=== PATIENT | male | born 1950 | race Caucasian/White ===

== ENCOUNTER 2018-10-08 12:47 | Inpatient (IN) ==
--- NOTE | 2018-10-08 13:58 | Emergency Department Note ---
Disposition Clinical Impression: Chest pain Qualifiers: Chest pain type: unspecified Qualified Code(s): R07.9 - Chest pain, unspecified Hypertension Qualifiers: Hypertension type: unspecified Qualified Code(s): I10 - Essential (primary) hypertension Disposition: Admitted As Inpatient Condition: Undetermined Time of Disposition: 16:04 General Adult HPI - General Chief complaint: ED General Medical Stated complaint: Hypertension Time Seen by Provider: 10/08/18 12:58 Source: patient Mode of arrival: ambulatory Limitations: no limitations Nursing Notes Reviewed: Yes Vital Signs Reviewed: Yes - History of Present Illness HPI Narrative: 67-year-old male with history of hypertension arrives to the emergency department with complaint of not feeling well. He is describing intermittent episodes of chest and neck pain on evaluation when he is hypertensive. States that he wakes him up at night. The patient denies any complaint of anything at this time other than just feeling rundown. Patient is resting comfortably in the room. Vital signs demonstrate no acute process with the exception of his hypertension. He is currently on lisinopril. Patient was seen in another emergency department a few days ago where he was given 5 of Lopressor secondary to his hypertension. He was discharged home. He arrives to the emergency department with continued symptoms and does not know what else to do. No other acute complaints noted at this time. Pain Scale: 8 - Related Data Home Medications Medication Instructions Recorded Confirmed Lisinopril [Zestril] 20 mg PO BID 10/03/18 10/08/18 Amlodipine Besylate 2.5 mg PO BID 10/08/18 10/08/18 [place] Thyroid 15 mg PO DAILY 10/08/18 10/08/18 Aspirin 81 mg PO DAILY 10/08/18 10/08/18 CloNIDine 0.1 mg PO TID PRN 10/08/18 10/08/18 Allergies Allergy/AdvReac Type Severity Reaction Status Date / Time No Known Allergies Allergy Verified 10/03/18 07:29 All systems ED: reviewed and negative except as stated. Constitutional: Denies: fever, chills, weakness ENT ED: Denies: dysphagia Cardiovascular: Reports: chest pain Respiratory: Denies: dyspnea Gastrointestinal: Denies: abdominal pain Genitourinary: Denies: urgency, dysuria Musculoskeletal: Reports: neck pain. Denies: back pain Integumentary: Denies: rash Neurological: Denies: headache Past Medical History - Past Medical History Attestation: Yes The following information was validated with the patient. Source: patient, old records reviewed Medical history: Reports: hypertension Surgical history: Reports: non-contributory Psychiatric history: Reports: no psych history - Social History Smoking Status: Never smoker Smokeless Tobacco Status: No Alcohol use: Reports: none Drug use: Reports: none Physical Exam - General Limitations: no limitations General appearance: alert, in no apparent distress - Head Head exam: atraumatic, normocephalic, normal inspection - Eye Eye exam: Present: normal appearance, PERRL, EOMI - ENT ENT exam: normal exam, normal oropharynx, mucous membranes moist - Neck Neck exam: Present: normal inspection, full ROM, trachea midline - Chest Chest inspection: Present: normal inspection, symmetric chest wall rise - Respiratory Respiratory exam: Present: normal lung sounds bilaterally - Cardiovascular Cardiovascular exam: Present: regular rate, normal rhythm, normal heart sounds - Abdominal Exam Abdominal exam: Present: soft, Non-Tender. Absent: tenderness, distention, guarding, rebound, rigidity - Extremities Exam Extremities exam: Present: normal inspection, full ROM, normal capillary refill. Absent: tenderness, pedal edema - Neurological Exam Neurological exam: Present: alert, oriented X3 - Skin Skin exam: Present: warm, dry, intact, normal color Course Vital Signs Temperature 97.9 F 10/08/18 12:53 Pulse Rate 65 10/08/18 12:53 Respiratory Rate 18 10/08/18 12:53 Blood Pressure 187/98 10/08/18 12:53 O2 Sat by Pulse Oximetry 100 10/08/18 12:53 Temperature 97.9 F 10/08/18 13:14 Pulse Rate 61 10/08/18 14:54 Respiratory Rate 16 10/08/18 14:54 Blood Pressure 132/82 10/08/18 14:54 O2 Sat by Pulse Oximetry 97 10/08/18 14:54 Oxygen Delivery Oxygen Delivery Room Air Medical Decision Making - [facility] Narrative Medical decision making narrative: Patient's workup in the emergency department demonstrates no acute process. Given the episodic nature and complaint of chest discomfort as well as neck pain I am concerned about potential ACS and unstable angina. The patient will be admitted to the hospital at this time. No further questions or concerns noted. - Lab Data Lab results reviewed: Yes I reviewed the patient's lab results. Result diagrams: 10/09/18 05:30 10/09/18 05:30 Lab Results 10/08/18 10/08/18 10/08/18 Range/Units 13:45 13:45 13:45 WBC 7.4 (4.3-11.1) K/mcL RBC 5.77 H (4.19-5.50) M/mcL Hgb 17.2 H (12.9-16.9) g/dL Hct 52.4 H (37.5-50.1) % MCV 90.8 (83.0-100.0) fL MCH 29.8 (28.0-33.3) pg MCHC 32.8 (31.6-35.5) g/dL RDW 12.9 (11.5-14.5) % Plt Count 266 (140-400) K/mcL MPV 9.1 L (9.4-12.4) fL Immature Gran % 0.3 (0-4) % Seg Neutrophils % 74.8 % Lymphocytes % 13.6 % Monocytes % 7.0 % Eosinophils % 2.8 % Basophils % 1.5 % Neutrophils # 5.6 (1.6-8.9) K/mcL Lymphocytes # 1.0 (0.6-4.6) K/mcL Monocytes # 0.5 (0.0-1.3) K/mcL Eosinophils # 0.2 (0.0-0.6) K/mcL Basophils # 0.1 (0.0-0.2) K/mcL Sodium 139 (136-145) mEq/L Potassium 4.8 (3.5-5.1) mEq/L Chloride 104 (98-107) mEq/L Carbon Dioxide 26 (23-29) mEq/L BUN 15 (8-23) mg/dL Creatinine 0.97 (0.70-1.30) mg/dL Est GFR ( Amer) > 60 (> 60) Est GFR (Non-Af Amer) > 60 (> 60) BUN/Creatinine Ratio 15 (6-26) Glucose 102 (70-105) mg/dL Calculated Osmolality 289 (280-300) Calcium 9.9 (8.6-10.3) mg/dL Total Bilirubin 0.8 (0.3-1.0) mg/dL Direct Bilirubin 0.1 (0.0-0.2) mg/dL Indirect Bilirubin 0.7 (0.0-1.2) mg/dL AST 15 (13-39) Units/L ALT 14 (7-52) Units/L Alkaline Phosphatase 82 (34-104) Units/L Troponin I < 0.03 (< 0.04) ng/mL Serum Total Protein 7.5 (6.4-8.9) g/dL Albumin 4.5 (3.5-5.7) g/dL Globulin 3.0 (2.4-3.5) g/dL Albumin/Globulin Ratio 1.5 (1.1-2.2) TSH 2.672 (0.340-5.600) mcIU/mL - Radiology Data Radiology results reviewed: Yes I reviewed the patient's radiology results. Chest X-Ray 10/08/18 13:13 IMPRESSION: No active cardiopulmonary disease D/ / Adi Shankar MD / Adi Shankar MD Interpreting Provider: Adi Shankar MD - EKG Data EKG #1 EKG attestation: Yes I reviewed and interpreted this EKG. EKG results narrative: Heart rate 62 beats for minute. Normal sinus rhythm. No ST elevation or ST depression noted. No acute changes noted. Attestation Statement - Attestation Attestation: Resident Attestation: I examined this patient and my medical decision making was reviewed with the Resident Physician. I agree with the documented findings, disposition and treatment plan as described except to the extent set forth below. We independently had [id number] contact with the patient.EKG reviewed with resident physician. Agree with documentation. Patient presents for evaluation of chest pain radiating to the neck. Regular rhythm, clear to auscultation bilaterally, no acute distress, abdomen soft nontender to palpation. Patient will likely require admission secondary to symptoms and need for further evaluation.
[2018-10-08 14:02] LABS: Basophils # 0.1 K/mcL (0.0-0.2); Basophils % 1.5 %; Eosinophils # 0.2 K/mcL (0.0-0.6); Eosinophils % 2.8 %; Hematocrit 52.4 % (37.5-50.1); Hemoglobin 17.2 g/dL (12.9-16.9); Immature Granulocytes % 0.3 % (0-4); Lymphocytes % 13.6 %; Mean Corpuscular HGB Conc 32.8 g/dL (31.6-35.5); Mean Corpuscular Hemoglobin 29.8 pg (28.0-33.3); Mean Corpuscular Volume 90.8 fL (83.0-100.0); Mean Platelet Volume 9.1 fL (9.4-12.4); Monocytes # 0.5 K/mcL (0.0-1.3); Neutrophils # 5.6 K/mcL (1.6-8.9); Platelet Count 266 K/mcL (140-400); Red Blood Count 5.77 M/mcL (4.19-5.50); Red Cell Distribution Width 12.9 % (11.5-14.5); Segmented Neutrophils % 74.8 %; White Blood Count 7.4 K/mcL (4.3-11.1)
[2018-10-08 14:29] LABS: BUN/Creatinine Ratio 15 (6-26); Blood Urea Nitrogen 15 mg/dL (8-23); Calcium 9.9 mg/dL (8.6-10.3); Carbon Dioxide 26 mEq/L (23-29); Chloride 104 mEq/L (98-107); Glucose 102 mg/dL (70-105); Osmolality,Calculated 289 (280-300); Potassium 4.8 mEq/L (3.5-5.1); Sodium 139 mEq/L (136-145); Troponin I < 0.03 ng/mL (< 0.04); eGFR For African Americans > 60 (> 60); eGFR For Non-African Americans > 60 (> 60)
[2018-10-08 15:05] LABS: Albumin 4.5 g/dL (3.5-5.7); Albumin/Globulin Ratio 1.5 (1.1-2.2); Bilirubin,Direct 0.1 mg/dL (0.0-0.2); Bilirubin,Indirect 0.7 mg/dL (0.0-1.2); Bilirubin,Total 0.8 mg/dL (0.3-1.0); Thyroid Stimulating Hormone 2.672 mcIU/mL (0.340-5.600); Total Protein 7.5 g/dL (6.4-8.9)
[2018-10-08] MEDS ORDERED: Aspirin 325 MG TABLET PO ONE (15:58)
[2018-10-08] MEDS ORDERED: Nitroglycerin 0.4 MG TAB.SUBL SL PRN (15:58)
[2018-10-08] MEDS ORDERED: Naloxone 0.4 MG/ML INJ IVP PRN (17:13)
[2018-10-08] MEDS ORDERED: Acetaminophen 325 MG TABLET PO PRN (17:13)
[2018-10-08] MEDS ORDERED: *HR* HYDROcodone/Acet 5/325 mg TABLET PO PRN (17:13)
[2018-10-08] MEDS ORDERED: cloNIDine HCl 0.1 MG TABLET PO PRN (20:46)
--- NOTE | 2018-10-08 20:49 | Internal Med History&Physical ---
Date of Encounter: 10/08/18 Time of Encounter: 17:00 Internal Medicine - H&P: HPI Chief complaint: Hypertension Admitted From: Emergency Dept Plans for Post Hospital Care: Home History of present illness: Mr. 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 He continued to experience symptoms for the next few days. Describing intermittent feelings of being flushed general malaise pain going down the back of his neck fatigue and weight loss approximately 3 pounds this week and 10 pounds in one year and intentional. He denies any chest pain or shortness of breath he has had some nausea but no vomiting. States that the symptoms will wake him up at night. He presented to the ER with the above complaints in the ER lab work did reveal elevated hemoglobin and hematocrit rest of lab work was unremarkable EKG was sinus rhythm no ischemic changes noted chest x-ray no acute process. He did have elevated blood pressure and was given nitroglycerin which did decrease his blood pressure. He is been admitted for further workup and evaluation currently denies any chest pain or any symptoms his blood pressure is currently 160 systolic Past Med Surg Social Fam HX - Past Medical History Medical history: hypertension Psychiatric history: no psych history - Past Surgical History Surgical History: non-contributory - Social History Smoking Status: Never smoker Smokeless Tobacco Status: No Alcohol use: none Drug use: none - Family History Mother Hx Family Cardiac Disorders: Yes Father Hx Family Cardiac Disorders: Yes Internal Medicine - H&P: Meds Lisinopril [Zestril] 20 mg PO BID 10/03/18 [History] Amlodipine Besylate 2.5 mg PO BID 10/08/18 [History] Delong Thyroid 15 mg PO DAILY 10/08/18 [History] Aspirin 81 mg PO DAILY 10/08/18 [History] CloNIDine 0.1 mg PO TID PRN 10/08/18 [History] Allergy/AdvReac Type Severity Reaction Status Date / Time No Known Allergies Allergy Verified 10/03/18 07:29 All Systems PM: A 10-system review of systems was performed and is negative for pertinent findings except as documented above in the HPI. - Constitutional Constitutional: anorexia, excessive sweating, malaise, weight loss, no chills, no fever(s), no night sweats - EENT Eyes: no change in vision, no discharge, no pain, no photophobia Ears: no ear discharge, no ear pain, no tinnitus Nose, mouth and throat: no dysphagia, no nasal discharge, no neck pain, no sore throat - Cardiovascular Cardiovascular ROS IM: no chest pain, no diaphoresis, no dyspnea, no lightheadedness, no palpitations, no syncope - Respiratory Respiratory: no cough, no dyspnea, no wheezing, no excessive phlegm production - Gastrointestinal Gastrointestinal: no abdominal pain, no diarrhea, no hematemesis, no hematochezia, no melena, no nausea, no vomiting - Musculoskeletal Musculoskeletal ROS IM: neck pain, no numbness, no tingling - Integumentary Integumentary IM: no rash, no unusual bruising - Neurological Neurological ROS: no confusion, no convulsions, no focal weakness, no numbness, no tingling, no tremor(s) - Hematologic/Lymphatic Hematologic/Lymphatic: no easy bruising - Constitutional Vitals: Temp Pulse Resp BP Pulse Ox 98.2 F 69 15 165/83 95 10/08/18 19:18 10/08/18 19:18 10/08/18 19:18 10/08/18 19:18 10/08/18 19:18 Exam: Skin: Free of rash and discoloration. Eyes: Sclera is white. There is no discharge from eyes. ENMT: Oral/pharyngeal mucosa is normal in appearance. There is no discharge from nose or ears. Respiratory: Normal breath sounds with no crackles and wheezes bilaterally. CV: Heart is regular with no gallop or murmur. GI: Abdomen is flat and soft with no palpable mass or visceromegaly. : There is no tenderness in patient's flanks bilaterally. Neuro exam: He has good strength in upper and lower extremities. He has normal eye movements. Psychiatric: He has normal affect. His thought process is appropriate to the situation. Internal Med - H&P Results - Labs CBC & Chem 7: 10/08/18 13:45 10/08/18 13:45 Labs: Short CBC 10/08/18 Range/Units 13:45 WBC 7.4 (4.3-11.1) K/mcL Hgb 17.2 H (12.9-16.9) g/dL Hct 52.4 H (37.5-50.1) % Plt Count 266 (140-400) K/mcL Neutrophils # 5.6 (1.6-8.9) K/mcL BMP 10/08/18 13:45 Sodium 139 Potassium 4.8 Chloride 104 Carbon Dioxide 26 BUN 15 Creatinine 0.97 Glucose 102 Calcium 9.9 Cardiac Enzymes 10/08/18 10/08/18 Range/Units 13:45 17:23 Troponin I < 0.03 < 0.03 (< 0.04) ng/mL Liver Function 10/08/18 Range/Units 13:45 Total Bilirubin 0.8 (0.3-1.0) mg/dL Direct Bilirubin 0.1 (0.0-0.2) mg/dL AST 15 (13-39) Units/L ALT 14 (7-52) Units/L Alkaline Phosphatase 82 (34-104) Units/L Albumin 4.5 (3.5-5.7) g/dL - Impressions ITS Impressions Chest X-Ray 10/08/18 13:13 IMPRESSION: No active cardiopulmonary disease D/ / Adi Shankar MD / Adi Shankar MD Interpreting Provider: Adi Shankar MD - Assessment and Plan (1) Polycythemia Current Visit: Yes Status: Suspected Assessment and plan: Have slightly elevated hemoglobin and hematocrit-states that he has never had problems with hematocrit in the past Has been experiencing her mid neck pain with elevated blood pressure We will check a serum erythropoietin As well as a urinalysis for hematuria Consult hematology as needed Continue to monitor hemoglobin (2) Pheochromoblastoma Current Visit: Yes Status: Suspected Assessment and plan: Patient has been experiencing intermittent elevations of blood pressure with systolic at 200 at times. He has been experiencing symptoms of flushing general malaise fatigue pain in the back of his neck and weight loss 3 pounds weight loss in the last week CT is feeling anxious this is been going on for the past month but in the past week it has worsened with elevation of blood pressure-he has been awakened at night with the above symptoms he was seen at the ER and was given IV medication he also had elevated TSH and was initiated on Synthroid We will obtain a 24-hour urine for metanephrine CT of abdomen and pelvis check for a lesion Continue with home BP medications . 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 Continue with home medication as well as workup above (4) DVT prophylaxis Current Visit: Yes Status: Acute Assessment and plan: Lovenox subcutaneous (5) Hypothyroid Current Visit: Yes Status: Acute Assessment and plan: Continue with home medications Check TSH Qualifiers: Hypothyroidism type: unspecified Qualified Code(s): E03.9 - Hypothyroidism, unspecified - Time Spent With Patient Total time spent is greater than 50% in coordination of care (as documented) at patient's floor/unit and/or counseling patient:
[2018-10-08 21:13] LABS: Bilirubin,Urine Negative (Negative); Blood,Urine Negative (Negative); Clarity,Urine Clear (Clear); Color,Urine Yellow (Yellow); Glucose,Urine (UA) Normal (Normal); Ketones,Urine Negative (Negative); Leukocyte Esterase,Urine Trace (Negative); Nitrite,Urine Negative (Negative); Protein,Urine Negative (Neg-Trace); Specific Gravity,Urine 1.018 (1.010-1.025); Urobilinogen,Urine Normal (Normal)
[2018-10-08 21:15] LABS: Bacteria,Urine None Seen per hpf (None-Few); Hyaline Casts,Urine None Seen per lpf (None-Few); RBC,Urine 0-3 per hpf (0-3); Squamous Epithelial Cell,Urine Few per lpf (None-Few); WBC,Urine 0-3 per hpf (0-3)
[2018-10-08] MEDS ORDERED: Perflutren Lipid Microsphere 1.3 ML in 0.9 % Sodium Chloride 8.7 ML IVP ONE (22:30)
[2018-10-08] MEDS: amLODIPine 5 MG TABLET PO SCH (23:28)
[2018-10-09] MEDS ORDERED: *HR* LORazepam 2 MG/ML VIAL IVP ONE (00:45)
[2018-10-09 06:09] LABS: Basophils # 0.1 K/mcL (0.0-0.2); Basophils % 1.7 %; Eosinophils # 0.5 K/mcL (0.0-0.6); Eosinophils % 6.1 %; Hematocrit 49.9 % (37.5-50.1); Hemoglobin 15.9 g/dL (12.9-16.9); Immature Granulocytes % 0.4 % (0-4); Lymphocytes # 1.4 K/mcL (0.6-4.6); Lymphocytes % 17.3 %; Mean Corpuscular HGB Conc 31.9 g/dL (31.6-35.5); Mean Corpuscular Volume 90.9 fL (83.0-100.0); Mean Platelet Volume 9.2 fL (9.4-12.4); Monocytes # 0.6 K/mcL (0.0-1.3); Monocytes % 7.3 %; Neutrophils # 5.4 K/mcL (1.6-8.9); Platelet Count 235 K/mcL (140-400); Red Blood Count 5.49 M/mcL (4.19-5.50); Red Cell Distribution Width 12.7 % (11.5-14.5); Segmented Neutrophils % 67.2 %
[2018-10-09 06:32] LABS: BUN/Creatinine Ratio 17 (6-26); Blood Urea Nitrogen 16 mg/dL (8-23); Calcium 9.4 mg/dL (8.6-10.3); Carbon Dioxide 25 mEq/L (23-29); Chloride 106 mEq/L (98-107); Chol/HDL Ratio 4.5 (0-4.9); Cholesterol 161 mg/dL (< 200); Glucose 91 mg/dL (70-105); HDL Cholesterol 36 mg/dL (40-59); LDL Cholesterol,Calculated 114 mg/dL (0-99); Magnesium 2.1 mg/dL (1.6-2.6); Osmolality,Calculated 285 (280-300); Potassium 4.3 mEq/L (3.5-5.1); Sodium 137 mEq/L (136-145); Triglycerides 55 mg/dL (< 150); eGFR For African Americans > 60 (> 60); eGFR For Non-African Americans > 60 (> 60)
[2018-10-09] MEDS ORDERED: *HR* Enoxaparin 40 MG/0.4 ML SYRINGE SQ SCH (07:00)
[2018-10-09] MEDS: Thyroid (Amour) 30 MG TABLET PO SCH (07:52)
[2018-10-09] MEDS: Aspirin 81 MG TAB.CHEW PO SCH (07:52)
[2018-10-09] MEDS: amLODIPine 5 MG TABLET PO SCH ×2 (07:52→20:29)
[2018-10-09] MEDS ORDERED: Lisinopril 20 MG TABLET PO SCH (09:00)
[2018-10-09] MEDS ORDERED: Isovue-370 500 ML BOTTLE IVP ONE (10:19)
--- NOTE | 2018-10-09 12:50 | Gastroenterology Consult Note ---
<FaulknerDylan Anaya - Last Filed: 10/09/18 12:46> Date of Encounter: 10/09/18 Time of Encounter: 12:10 - Assessment and plan (1) Dysphagia Current Visit: Yes Status: Acute Assessment and plan: CT A/P showed mild mural thickening suggested within the lower esophagus. Patient with difficulty swallowing solids and liquids. Plan for EGD tomorrow with possible dilation to r/o structural causes such as stricture, tumor, etc vs esophageal motility disorder. Keep patient NPO at midnight. Qualifiers: Dysphagia type: unspecified Qualified Code(s): R13.10 - Dysphagia, unspecified - Time Spent With Patient Total time spent is greater than 50% in coordination of care (as documented) at patient's floor/unit and/or counseling patient: GI History of Present Illness - Data of Consult Patient: new to practice Consult date: 10/09/18 Requesting Physician: Arnold French DO - Consult Narrative Reason for consult: Dysphagia History of present illness: Mr. Perez is a 67 year old male with PMHx of HTN and heavy metal exposure receiving chelation therapy presented with complaints of not feeling well and ge neral malaise. We have been consulted to evaluate dysphagia and abnormal finding on CT. He reports feeling like solids and liquids get stuck in throat intermittently. This has been ongoing for the past 2 years. Symptoms seem improved when he is not stressed or in brim flexer. CT A/P showed mild mural thickening suggested within the lower esophagus. He reports history of GERD, which was worse with lying down. He was taking Zantac, but after he changed his diet, his symptoms are well controlled without daily medication. Procedures: None NSAIDs: ASA Anticoagulation: None Past Med Surg Social Fam HX - Past Medical History Medical history: hypertension Psychiatric history: no psych history - Past Surgical History Surgical History: non-contributory - Social History Smoking Status: Never smoker Smokeless Tobacco Status: No Alcohol use: none Drug use: none - Family History Mother Hx Family Cardiac Disorders: Yes Father Hx Family Cardiac Disorders: Yes - Gastrointestinal Gastrointestinal: Present: as per HPI - Constitutional Constitutional: as per HPI - EENT Eyes: as per HPI Ears: Present: as per HPI Nose, mouth and throat: Present: as per HPI - Cardiovascular Cardiovascular ROS: Present: as per HPI - Respiratory Respiratory IM: Present: as per HPI - Genitourinary Genitourinary: Absent: change in color, Urinary frequency - Neurological ROS Neurological GI: Present: as per HPI - Hematologic/Lymphatic Hematologic/Lymphatic pediatric: Present: as per HPI - Musculoskeletal Musculoskeletal ROS GI: Present: as per HPI - Integumentary Integumentary GI: Present: as per HPI - Psychiatric ROS Psychiatric GI: Present: as per HPI - Endocrine Endocrine IM: Present: as per HPI - Constitutional Vitals: Temp Pulse Resp BP Pulse Ox 98.0 F 64 16 163/79 97 10/09/18 11:12 10/09/18 11:12 10/09/18 11:12 10/09/18 11:12 10/09/18 11:12 General appearance: Present: cooperative, A&O X 3, no acute distress, answers questions appropriately - Head Head exam: Present: atraumatic, normocephalic - Eye Eye exam: Present: normal appearance, sclera anicteric - ENT ENT exam: Present: mucous membranes moist - Neck Neck exam general surgery: Present: normal inspection, trachea midline - Respiratory Respiratory exam: Present: CTAB. Absent: rales, rhonchi - Cardiovascular Cardiovascular exam: Present: RRR, +S1, +S2 - GI/Abdominal GI/Abdominal exam: Present: soft, no peritoneal signs. Absent: distended, firm, guarding, tenderness - Rectal Rectal exam: Present: deferred - Extremities Exam Extremities exam: Present: warm - Neurological Exam Neurological exam: Present: no focal deficits - Psychiatric Psychiatric exam: Present: normal affect, normal mood - Skin Skin exam: Present: dry, intact, normal color, warm Results - Labs CBC & Chem 7: 10/09/18 05:30 10/09/18 05:30 Labs: Last Result 10/09/18 10/09/18 05:30 05:30 Calcium 9.4 Troponin I < 0.03 Triglycerides 55 Entire Visit 10/09/18 05:30 Hgb 15.9 Hct 49.9 - Impressions Impressions Chest X-Ray 10/08/18 13:13 IMPRESSION: No active cardiopulmonary disease D/ / Adi Shankar MD / Adi Shankar MD Interpreting Provider: Adi Shankar MD Echocardiogram 10/08/18 18:51 Impressions: LVEF 60-65%. Mild left ventricular diastolic dysfunction. Normal right ventricular structure and function. Mild mitral regurgitation. Mild tricuspid regurgitation. Borderline pulmonary hypertension. No evidence of PFO with agitated saline contrast. Left Ventricular Wall Motion: Rest Echo Findings All wall segments showed normal motion. Findings: Study Quality * Technically adequate exam. ECG Findings * Normal sinus rhythm. Left Ventricle * LVEF 60-65%. * Normal LV chamber size, wall thickness and function. * Mild left ventricular diastolic dysfunction. Right Ventricle * Normal right ventricular structure and function. Left Atrium * Moderately dilated left atrium. Right Atrium * Mildly dilated right atrium. Mitral Valve * Normal mitral valve structure. * No mitral stenosis. * Mild mitral regurgitation. Aortic Valve * No aortic regurgitation. * Trileaflet aortic valve. * No aortic stenosis. Tricuspid Valve * Normal tricuspid valve structure. * Mild tricuspid regurgitation. Pulmonic Valve * Pulmonic valve is not well visualized. * No pulmonic stenosis. * No pulmonic regurgitation. Aorta * Normally sized aortic root. Pericardium * There is no pericardial effusion present. Pulmonary Artery * Pulmonary artery not well visualized. Interatrial Septum * No evidence of PFO with agitated saline contrast. IVC * The IVC is not well evaluated. Abdomen/Pelvis CT 10/08/18 19:00 IMPRESSION: No suspicious masses are identified within the abdomen pelvis to suggest pheochromocytoma. If there is strong clinical concern for pheochromocytoma or there are elevated urine catecholamines, further evaluation with a nuclear medicine Octreoscan could be considered. D/ / Luis A Larson MD / Luis A Larson MD Interpreting Provider: Luis A Larson MD Neck CTA 10/09/18 10:19 IMPRESSION: No high-grade stenosis or focal occlusion involving the cervical vasculature. No evidence of acute dissection. Multilevel moderate degenerative changes of the cervical spine, with multiple presumably degenerative spondylolisthesis. No gross evidence of acute cervical spine abnormality. D/ / 10/09/2018 12:15:28 Babak Adams MD / lgray Interpreting Provider: Babak Adams MD Consult Discharge Plan - Plan Referrals: Aaron Motta [Primary Care Provider] - <Braden Wall - Last Filed: 10/09/18 18:12> Date of Encounter: 10/09/18 Time of Encounter: 14:00 - Time Spent With Patient Total time spent is greater than 50% in coordination of care (as documented) at patient's floor/unit and/or counseling patient: GI History of Present Illness - Data of Consult Requesting Physician: Arnold French DO - Consult Narrative History of present illness: Mr. Perez is a 67 year old male - Constitutional Vitals: Temp Pulse Resp BP Pulse Ox 98.6 F 61 16 169/78 95 10/09/18 14:48 10/09/18 14:48 10/09/18 14:48 10/09/18 14:48 10/09/18 14:48 Results - Labs CBC & Chem 7: 10/09/18 05:30 10/09/18 05:30 Labs: Last Result 10/09/18 10/09/18 05:30 05:30 Calcium 9.4 Troponin I < 0.03 Triglycerides 55 - Impressions Impressions Echocardiogram 10/08/18 18:51 Impressions: LVEF 60-65%. Mild left ventricular diastolic dysfunction. Normal right ventricular structure and function. Mild mitral regurgitation. Mild tricuspid regurgitation. Borderline pulmonary hypertension. No evidence of PFO with agitated saline contrast. Left Ventricular Wall Motion: Rest Echo Findings All wall segments showed normal motion. Findings: Study Quality * Technically adequate exam. ECG Findings * Normal sinus rhythm. Left Ventricle * LVEF 60-65%. * Normal LV chamber size, wall thickness and function. * Mild left ventricular diastolic dysfunction. Right Ventricle * Normal right ventricular structure and function. Left Atrium * Moderately dilated left atrium. Right Atrium * Mildly dilated right atrium. Mitral Valve * Normal mitral valve structure. * No mitral stenosis. * Mild mitral regurgitation. Aortic Valve * No aortic regurgitation. * Trileaflet aortic valve. * No aortic stenosis. Tricuspid Valve * Normal tricuspid valve structure. * Mild tricuspid regurgitation. Pulmonic Valve * Pulmonic valve is not well visualized. * No pulmonic stenosis. * No pulmonic regurgitation. Aorta * Normally sized aortic root. Pericardium * There is no pericardial effusion present. Pulmonary Artery * Pulmonary artery not well visualized. Interatrial Septum * No evidence of PFO with agitated saline contrast. IVC * The IVC is not well evaluated. Abdomen/Pelvis CT 10/08/18 19:00 IMPRESSION: No suspicious masses are identified within the abdomen pelvis to suggest pheochromocytoma. If there is strong clinical concern for pheochromocytoma or there are elevated urine catecholamines, further evaluation with a nuclear medicine Octreoscan could be considered. D/ / uLis A Larson MD / Luis A Larson MD Interpreting Provider: Luis A Larson MD Neck CTA 10/09/18 10:19 IMPRESSION: No high-grade stenosis or focal occlusion involving the cervical vasculature. No evidence of acute dissection. Multilevel moderate degenerative changes of the cervical spine, with multiple presumably degenerative spondylolisthesis. No gross evidence of acute cervical spine abnormality. D/ / 10/09/2018 12:15:28 Babak Adams MD / anaya Interpreting Provider: Babak Adams MD - Attending Attestation I have personally performed a face to face evaluation on this patient. I have reviewed and agree with the care plan. History and Exam by me shows: Patient seen complaining of dysphagia for both solid and liquid. Examination: Abdomen is benign. Assessment: Dysphagia. Recommendation EGD tomorrow
--- NOTE | 2018-10-09 16:58 | Internal Med Progress Note ---
Hospitalist Progress Note - Encounter Date of Encounter: 10/09/18 Time of Encounter: 11:00 - Subjective Interval History: Mr Perez is currently admitted for uncontrolled symptomatic HTN. He remains moderate to high risk due to potential for worsening clinical and neuro status. Mr Perez continues to have issues with BP. Was high overnight and he had sym ptoms of flushing and palpitations. No fever or chills. Carotid duplex abnormal - CTA of neck OK. No CP. No abd pain. No swelling. and daughter at bedside. - Exam Vitals: Temp Pulse Resp BP Pulse Ox 98.6 F 61 16 169/78 95 10/09/18 14:48 10/09/18 14:48 10/09/18 14:48 10/09/18 14:48 10/09/18 14:48 Exam: General: Alert and oriented. Comfortable at this time. Skin: Normal color, no rash, H: Normocephalic. EENT: EOMI, Mucus membranes moist. Cardiovascular: Normal S1 & S2, no murmurs Pulse regular. Not tachycardic Lungs: Normal breath sounds, no wheezes or crackles. Abdomen: Soft, non-tender, Normal bowel sounds. Extremities: No edema. Good ROM. Neurological: Normal cognition and motor skills. Pulses: radial pulses normal +2. Rest of the physical exam is non contributory - Assessment and Plan (1) Hypertensive urgency Current Visit: No Status: Acute Assessment and Plan: Pt continues to have some episodes of elevated BP with associated "flushed" feeling. Had palpitations last night. BP has been coming down during the day. No further symptoms. Discussed with patient and family - so far all tests negative though some may not come back and will need to be followed up at outpatient appt. Nephrology consulted for further assistance as well. 24 hour urine pending. (2) Polycythemia Current Visit: Yes Status: Suspected Assessment and Plan: Serum erythopoietin pending. Has improved with fluids. Nocturnal pulse ox ordered to r/o hypoxemia. (3) Pheochromoblastoma Current Visit: Yes Status: Suspected Assessment and Plan: Patient has been experiencing intermittent elevations of blood pressure with systolic at 200 at times. He has been experiencing symptoms of flushing general malaise fatigue pain in the back of his neck and weight loss 3 pounds weight loss in the last week CT is feeling anxious this is been going on for the past month but in the past week it has worsened with elevation of blood pressure-he has been awakened at night with the above symptoms he was seen at the ER and was given IV medication 24 h urine studies pending. Nephrology to see. (4) DVT prophylaxis Current Visit: Yes Status: Acute Assessment and Plan: Lovenox subcutaneous (5) Hypothyroid Current Visit: Yes Status: Acute Assessment and Plan: Continue with home medications TSH normal now. (6) Dysphagia Current Visit: Yes Status: Acute Assessment and Plan: Pt with complaints of dysphagia. Hx increased eosinophils, abnl esophagus on CT. To have EGD tomorrow. - Time Spent with Patient Total time spent is greater than 50% in coordination of care (as documented) at patient's floor/unit and/or counseling patient: Internal Medicine: Result - Labs CBC & Chem 7: 10/09/18 05:30 10/09/18 05:30 Labs: Short CBC 10/09/18 Range/Units 05:30 WBC 8.0 (4.3-11.1) K/mcL Hgb 15.9 (12.9-16.9) g/dL Hct 49.9 (37.5-50.1) % Plt Count 235 (140-400) K/mcL Neutrophils # 5.4 (1.6-8.9) K/mcL BMP 10/09/18 05:30 Sodium 137 Potassium 4.3 Chloride 106 Carbon Dioxide 25 BUN 16 Creatinine 0.93 Glucose 91 Calcium 9.4 Cardiac Enzymes 10/08/18 10/08/18 10/09/18 Range/Units 17:23 23:04 05:30 Troponin I < 0.03 < 0.03 < 0.03 (< 0.04) ng/mL Urine 10/08/18 Range/Units 21:00 Urine Color Yellow (Yellow) Urine Clarity Clear (Clear) Urine pH 6.0 (5.0-8.0) pH Units Ur Specific Bogart 1.018 (1.010-1.025) Urine Protein Negative (Neg-Trace) mg/dL Urine Glucose (UA) Normal (Normal) mg/dL - Impressions Impressions Echocardiogram 10/08/18 18:51 Impressions: LVEF 60-65%. Mild left ventricular diastolic dysfunction. Normal right ventricular structure and function. Mild mitral regurgitation. Mild tricuspid regurgitation. Borderline pulmonary hypertension. No evidence of PFO with agitated saline contrast. Left Ventricular Wall Motion: Rest Echo Findings All wall segments showed normal motion. Findings: Study Quality * Technically adequate exam. ECG Findings * Normal sinus rhythm. Left Ventricle * LVEF 60-65%. * Normal LV chamber size, wall thickness and function. * Mild left ventricular diastolic dysfunction. Right Ventricle * Normal right ventricular structure and function. Left Atrium * Moderately dilated left atrium. Right Atrium * Mildly dilated right atrium. Mitral Valve * Normal mitral valve structure. * No mitral stenosis. * Mild mitral regurgitation. Aortic Valve * No aortic regurgitation. * Trileaflet aortic valve. * No aortic stenosis. Tricuspid Valve * Normal tricuspid valve structure. * Mild tricuspid regurgitation. Pulmonic Valve * Pulmonic valve is not well visualized. * No pulmonic stenosis. * No pulmonic regurgitation. Aorta * Normally sized aortic root. Pericardium * There is no pericardial effusion present. Pulmonary Artery * Pulmonary artery not well visualized. Interatrial Septum * No evidence of PFO with agitated saline contrast. IVC * The IVC is not well evaluated. Abdomen/Pelvis CT 10/08/18 19:00 IMPRESSION: No suspicious masses are identified within the abdomen pelvis to suggest pheochromocytoma. If there is strong clinical concern for pheochromocytoma or there are elevated urine catecholamines, further evaluation with a nuclear medicine Octreoscan could be considered. D/ / Luis A Larson MD / Luis A Larson MD Interpreting Provider: Luis A Larson MD Neck CTA 10/09/18 10:19 IMPRESSION: No high-grade stenosis or focal occlusion involving the cervical vasculature. No evidence of acute dissection. Multilevel moderate degenerative changes of the cervical spine, with multiple presumably degenerative spondylolisthesis. No gross evidence of acute cervical spine abnormality. 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
--- NOTE | 2018-10-09 17:10 | Nephrology Consult Note ---
Date of Encounter: 10/09/18 Time of Encounter: 17:00 Assessment and Plan (1) Hypertensive urgency Current Visit: No Status: Acute Ct A/P showed no signs of pheo Await urine metanephrines result and also check plasma catcheloamines Will also check renin, aldosterone and cortisol levels Will check urine for proteinuria TSH noted WNL Continue current amlodipine regimen but can increase as needed. Continue clonidine and lisinopril History of Present Illness - Reason for Consult Consult date: 10/09/18 accelerated hypertension Requesting physician: Arnold French - History of Present Illness 67 y o male with PMH of HTN and heavy metal exposure receiving chelation therapy admitted with generalized malaise. Pt grady also noted with 10lb weight loss this year with fluctuating elevated BP readings with flushing. Renal consulted for HTN workup Past Med Surg Social Fam HX - Past Medical History Medical history: hypertension Psychiatric history: no psych history - Past Surgical History Surgical History: non-contributory - Social History Smoking Status: Never smoker Smokeless Tobacco Status: No Alcohol use: none Drug use: none - Family History Mother Hx Family Cardiac Disorders: Yes Father Hx Family Cardiac Disorders: Yes Medications and Allergies Lisinopril [Zestril] 20 mg PO BID 10/03/18 [History] Amlodipine Besylate 2.5 mg PO BID 10/08/18 [History] Mullins Thyroid 15 mg PO DAILY 10/08/18 [History] Aspirin 81 mg PO DAILY 10/08/18 [History] CloNIDine 0.1 mg PO TID PRN 10/08/18 [History] Allergy/AdvReac Type Severity Reaction Status Date / Time No Known Allergies Allergy Verified 10/03/18 07:29 Exam - Vital Signs Vital signs: Initial Vital Signs Temp Pulse Resp BP Pulse Ox 97.9 F 65 18 187/98 100 10/08/18 12:53 10/08/18 12:53 10/08/18 12:53 10/08/18 12:53 10/08/18 12:53 Vital Signs - Last 8 Hours Temp Pulse Resp BP Pulse Ox 10/09/18 14:48 98.6 F 61 16 169/78 95 10/09/18 11:12 98.0 F 64 16 163/79 97 Intake and Output 10/09/18 10/09/18 10/09/18 07:59 15:59 23:59 Intake Total 0 / 0 Output Total 175 / 400 225 / 400 Balance -175 / -400 -225 / -400 Intake: Oral 0 / 0 Output: Urine 175 / 400 225 / 400 Other: # Bowel Movements 0 0 Results - Lab Results 10/09/18 05:30 10/09/18 05:30 Most recent lab results 10/09/18 05:30 Calcium 9.4 Magnesium 2.1 Consult Discharge Plan - Plan Referrals: Aaron Motta [Primary Care Provider] -
[2018-10-09] MEDS: Lisinopril 20 MG TABLET PO SCH (20:32)
[2018-10-10 05:26] LABS: Hematocrit 50.9 % (37.5-50.1); Hemoglobin 16.3 g/dL (12.9-16.9); Mean Corpuscular Hemoglobin 29.9 pg (28.0-33.3); Mean Corpuscular Volume 93.4 fL (83.0-100.0); Mean Platelet Volume 9.1 fL (9.4-12.4); Platelet Count 244 K/mcL (140-400); Red Blood Count 5.45 M/mcL (4.19-5.50); Red Cell Distribution Width 12.9 % (11.5-14.5); White Blood Count 7.6 K/mcL (4.3-11.1)
[2018-10-10 05:45] LABS: BUN/Creatinine Ratio 17 (6-26); Blood Urea Nitrogen 15 mg/dL (8-23); Calcium 9.6 mg/dL (8.6-10.3); Carbon Dioxide 24 mEq/L (23-29); Chloride 105 mEq/L (98-107); Glucose 98 mg/dL (70-105); Magnesium 2.1 mg/dL (1.6-2.6); Osmolality,Calculated 285 (280-300); Potassium 4.4 mEq/L (3.5-5.1); Sodium 137 mEq/L (136-145); eGFR For African Americans > 60 (> 60); eGFR For Non-African Americans > 60 (> 60)
[2018-10-10 05:59] LABS: Triiodothyronine (T3) Free 3.44 pg/mL (2.50-3.90)
[2018-10-10] MEDS: Thyroid (Amour) 30 MG TABLET PO SCH (08:23)
[2018-10-10] MEDS: Aspirin 81 MG TAB.CHEW PO SCH (08:24)
[2018-10-10] MEDS: Lisinopril 20 MG TABLET PO SCH (08:24)
[2018-10-10] MEDS ORDERED: amLODIPine 5 MG TABLET PO SCH (09:00)
--- NOTE | 2018-10-10 11:00 | Discharge Summary ---
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% bilateral renal artery stenosis and needs VascSurg follow up Orders not resulted at time of discharge: Pending orders 10/09/18 22:19 5-HIAA,Ur [place] or 24hr Routine Metanephrine,Ur Random or 24hr Routine Urine Microalbumin Random [UCHEM] Routine Urine Protein Creat Ratio [place] [UCHEM] Routine 10/10/18 05:03 Aldosterone, Blood AM 0400 Catecholamines,Fractionated AM 0400 Renin, Activity AM 0400 Testosterone,T,Fr,SHBG-Male Routine Surg path from duodenal biopsy Date of Encounter: 10/10/18 Time of Encounter: 10:59 - Discharge Diagnosis (1) Hypertensive urgency Priority: Primary Status: Acute Hospital course: Dear Doctors, I recently had the opportunity to care for this patient during their recent hospital stay at [facility]. 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 He also reported dysphagia of solid foods. In the ER, SBP elevated to 190, and Hct 51. Pt was admitted for hypertensive urgency. In the hospital, pt underwent extensive workup for seemingly various things. For his dysphagia, GI consulted who took pt for EGD which did reveal esophageal stricture requiring dilation. Patient underwent carotid duplex for unknown reason which was equivocal, and thus neck CTA ordered which was unremarkable for stenosis. For patient's possibly resistant HTN due to poor control on max lisinopril and half dose amlodipine, Neph was consulted. A renal artery ultrasound did show stenosis 60-80% bilaterally. Additional workup including metanephrines, rob, renin, and T levels were sent and pending. Dx: hypertensive urgency, erythrocytosis, dysphagia Pertinent tests/consults: - CXR wnl - CT abd/pelvis wnl and no evidence of pheo - Renal artery ultrasound showing bilateral stenosis 60-80% - CTA neck without stenosis - TTE showing borderline PulmHTN - EGD showing benign distal esophageal stricture which was intervened upon, and mild duodenitis Follow up: PCP 1 week, Neph 1-2 weeks, GI 2-3 weeks, VascSurg 3-4 weeks Tests pending: Several including plasma renin and rob, urine and plasma metanephrines, testosterone Med changes: - increase amlodipine from 2.5 bid to 5 bid - new omeprazole 20 daily Mental status: awake, fully oriented Code status: 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 Please contact me with any questions or concerns regarding their hospital stay. Sincerely, Jj Palomo MD - Discharge Medications Prescriptions: New amLODIPine [Norvasc] 5 mg PO BID #60 tablet Omeprazole 20 mg PO DAILY #[address] tab[address] Johns Thyroid,Pork [[place] Thyroid] 15 mg PO DAILY cloNIDine HCl [CloNIDine HCl] 0.1 mg PO TID PRN PRN Reason: Hypertension Aspirin [Lo-Dose Aspirin EC] 81 mg PO DAILY Lisinopril [Zestril] 20 mg PO BID Discontinued Amlodipine Besylate 2.5 mg PO BID Home Medications: Lisinopril [Zestril] 20 mg PO BID 10/03/18 [History] Aspirin [Lo-Dose Aspirin EC] 81 mg PO DAILY 10/08/18 [History] Thyroid,Pork [[place] Thyroid] 15 mg PO DAILY 10/08/18 [History] cloNIDine HCl [CloNIDine HCl] 0.1 mg PO TID PRN 10/08/18 [History] Omeprazole 20 mg PO DAILY #30 tab. 10/10/18 [Rx] amLODIPine [Norvasc] 5 mg PO BID #60 tablet 10/10/18 [Rx] Allergies/Adverse Reactions: Allergy/AdvReac Type Severity Reaction Status Date / Time No Known Allergies Allergy Verified 10/10/18 07:47 Date of admission: 10/09/18 16:50 Primary care physician: Aaron Motta Consults: 10/08/18 19:41 Consult to Nutrition [CONS] Routine Comment: Consulting Provider: NUTRITION Reason for Dietary Consult: MST Score 10/09/18 10:22 Consult to Gastroenterology [CONS] Routine Consulting Provider: [facility] [place] Reason for Consult: Dysphagia and abnormal CT Call Completed: Yes Consult to Nephrology [CONS] Routine Consulting Provider: [facility]OL/TONO Reason for Consult: intermittent severe hypertension. ? secondary cause. Call Completed: Yes - Constitutional Vitals: Temp Pulse Resp BP Pulse Ox 97.7 F 62 16 150/83 97 10/10/18 07:21 10/10/18 07:21 10/10/18 07:21 10/10/18 07:21 10/10/18 07:21 Exam: General: NAD, good eye contact, well appearing, mildly lin complexion Thoracic: Normal breath sounds b/l, no wheezing or crackles Cardio: Normal S1 and S2, regular rate and rhythm, no murmurs Abdomen: Soft, nontender Extremities: Warm, well perfused. DP pulses 2+ b/l. No edema. Skin: Intact. No rashes, bruises, or ulcers Neuro: Awake, fully oriented. Speech fluent - Patient Status Disposition: Home, Self-Care Condition: Fair Functional capacity at discharge: independent ambulation Overall status at discharge: patient is back to baseline - Discharge Instructions Follow Up With: Aaron Motta [Primary Care Provider] - Shelton Crum MD [Partnered Physician] - (2 weeks) Braden Wall MD [Partnered Physician] - (2-3 weeks) Rusty Rider MD [Partnered Physician] - (Dr Rider's office will call patient) - Diet and Activity Activity: resume usual activities as tolerated Diet: low salt diet
[2018-10-10] MEDS ORDERED: *HR* FentaNYL (PF) 100 MCG/2 ML VIAL ONE (15:15)
[2018-10-10] MEDS ORDERED: 0.9 % Sodium Chloride 1,000 ML IVC SCH (15:15)
[2018-10-10] MEDS ORDERED: *HR* Midazolam HCl 5 MG/5 ML VIAL IVP ONE ×2 (15:16→16:29)
--- NOTE | 2018-10-10 15:17 | Electrocardiograph Report ---
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
[2018-10-10] MEDS ORDERED: *HR* FentaNYL (PF) 100 MCG/2 ML VIAL IVP ONE (16:29)
[2018-10-10] MEDS ORDERED: Tetracaine/Benzocaine/Butamben 1 SPRAY AEROSOL MM ONE (16:29)
--- NOTE | 2018-10-10 16:29 | Pre-Sedation Evaluation ---
Pre-sedation evaluation - Pre-sedation checklist Date of procedure: 10/10/18 Procedure: egd Recent Vitals: Last Vital Signs Temp 98.0 F 10/10/18 15:07 Pulse 60 10/10/18 15:07 Resp 16 10/10/18 15:07 BP 169/89 10/10/18 15:07 Pulse Ox 98 10/10/18 15:07 H&P (including ROS) documented in medical record: Yes Previous reaction to sedatives/anesthetics: No Dietary Status: NPO after Midnight ASA Classification *see protocol: CLASS II-Mild systemic disease Plan of Care: Pt appropriate candidate for procedure/moderate/conscious sedation, Risks/benefits of procedure/sedation discussed w/ patient/family
[2018-10-10 16:40] VITALS: BP 154/92
--- NOTE | 2018-10-10 23:59 | Nephrology Progress Note ---
Date of Encounter: 10/10/18 - Assessment and Plan (1) Hypertensive urgency Status: Acute Objective - Vital Signs Vital signs: Vital Signs Temp Pulse Resp BP Pulse Ox 10/10/18 16:38 75 16 154/92 98 10/10/18 16:33 69 16 150/78 97 10/10/18 16:28 78 16 169/97 100 10/10/18 15:07 98.0 F 60 16 169/89 98 10/10/18 11:00 98.0 F 69 16 159/78 96 10/10/18 07:21 97.7 F 62 16 150/83 97 10/10/18 05:07 97.9 F 56 14 158/80 98 Intake and Output 10/10/18 10/10/18 10/10/18 07:59 15:59 23:59 Intake Total 0 / 0 0 / 0 Output Total 0 / 0 Balance 0 / 0 0 / 0 Intake: Oral 0 / 0 0 / 0 Output: Urine 0 / 0 Other: Meal Dinner Percent of Meal Consumed 0% Blood Glucose* 88 92 - Lab 10/10/18 05:03 10/10/18 05:03 Consult Discharge Plan - Plan Instructions: Chronic Hypertension (DC) Referrals: Aaron Motta [Primary Care Provider] - Rusty Rider MD [Partnered Physician] - (Dr Rider's office will call patient) Shelton Crum MD [Partnered Physician] - (2 weeks Web request entered. Office will call with date and time of appointment) Braden Wall MD [Partnered Physician] - (2-3 weeks Web request entered. Office will call with date and time of appointment. ) Prescriptions: amLODIPine [Norvasc] 5 mg PO BID #60 tablet Omeprazole 20 mg PO DAILY #30 tab.rap.
[2018-10-14 09:47] LABS: Urine Collection Volume 2876 mL
[2018-10-14 17:48] LABS: Urine Collection Volume 2876 mL; Urine Creatinine mg/d 1726 mg/d (800-2100)
[2018-10-15 08:40] LABS: Urine Creatinine mg/d 1726 mg/d (800-2100)
== END 2018-10-10 20:34 | disposition home or self-care (01) | DRG 305 ==
LOC: EMEROOARM 12:47 → 3ANU 12:47 → SUATTDRO 17:25 → 3ANU 18:00 → SUATTDRO 10-09 16:50
PROVIDERS: ADMIT Internal Medicine Nephrology; ATTEND Internal Medicine
PROC: ENDOORB (2018-10-10 15:30)